=== PATIENT | female | born 1995 | race Caucasian/White ===

== ENCOUNTER 2018-04-07 13:55 | Emergency (ER) | payer BC ==
--- NOTE | 2018-04-07 14:34 | Emergency Department Record ---
History of Present Illness - General Chief Complaint: Seizures Stated Complaint: SEIZURES Time Seen by Provider: 04/07/18 14:09 Source: Patient Mode of Arrival: Ambulatory Limitations: No limitations - History of Present Illness Initial Comments: The patient is here due to having multiple seizures last evening. She has a hx of Partial Seizure disorder and believes she had 6-7 last night. During one episode she did possibly have a small amount of incontinence but did not bite her tongue or injure herself. The patient does have seizures weekly and she just moved back her to [place] from [place] and does not have a Neurologist yet. Presently she does have a very mild TOURE which is typical for her after her seizures. The patient does not drive due to the seizure hx. MD Complaint: Possible seizure Onset/Timin -: Days(s) Description of Episode: Bladder incontinence Witnessed: Yes - by bystander Trauma: No Seizure History: Known seizure disorder Place: Home Associated Symptoms: Other Treatment Prior to Arrival Comment:: Oxcarbazepine - Related Data Home Medications Medication Instructions Recorded Confirmed Last Taken Oxcarbazepine [Trileptal] 150 mg PO BID 04/07/18 04/07/18 04/07/18 Allergies Allergy/AdvReac Type Severity Reaction Status Date / Time No Known Drug Allergies Allergy Verified 04/07/18 14:13 Travel Screening - Travel/Exposure Within Last 30 Days Have you traveled within the last 30 days?: Yes Location Detail:: [place] - Travel/Exposure Within Last Year Have you traveled outside the [place] in the last year?: No - Additonal Travel Details Have you been exposed to anyone with a communicable illness?: No - Travel Symptoms Symptom Screening: Headache Review of Systems Constitutional: Denies: Chills, Fever Eyes: Denies: Eye discharge ENT: Denies: Congestion Respiratory: Denies: Cough, Dyspnea Cardiovascular: Denies: Chest pain Endocrine: Denies: Fatigue Gastrointestinal: Denies: Abdominal pain Genitourinary: Denies: Dysuria Musculoskeletal: Denies: Arthralgia Neurological: Denies: Abnormal gait Past Medical History - SOCIAL HISTORY Smoking Status: Never smoker Alcohol Use: Rare Drug Use: Heavy Drug Use Detail:: Marijuana - RESPIRATORY Hx Respiratory Disorders: Yes Hx Asthma: Yes - CARDIOVASCULAR Hx Cardio Disorders: No - NEURO Hx Neuro Disorders: Yes Hx Seizures: Yes - GI Hx GI Disorders: No Hx Ulcer: Yes - Hx Genitourinary Disorders: No - ENDOCRINE Hx Diabetes: No Hx Thyroid Disease: No - MUSCULOSKELETAL Hx Fibromyalgia: Yes - PSYCH Hx Psych Problems: No Comment:: Not - HEMATOLOGY/ONCOLOGY Hx Hematology/Oncology Disorders: No Family Medical History Any Significant Family History?: No Hx Diabetes: Grandparents Physical Exam - General General Appearance: Alert, Oriented x3, Cooperative, No acute distress (The patient appears very comfortable, smiling as I walk in the room presently texting on her phone.) - Head Head exam: Atraumatic, Normocephalic, Normal inspection - Eye Eye exam: Normal appearance, PERRL, EOMI. negative: Nystagmus - ENT Mouth exam: Tongue normal Throat exam: Normal inspection. negative: Tonsillar erythema, Tonsillar exudate - Neck Neck exam: Normal inspection, Full ROM. negative: Lymphadenopathy, Meningismus , Tenderness - Respiratory Respiratory exam: Normal lung sounds bilaterally. negative: Respiratory distress - Cardiovascular Cardiovascular Exam: Regular rate, Normal rhythm, Normal heart sounds - GI/Abdominal GI/Abdominal exam: Soft, Normal bowel sounds. negative: Tenderness - Extremities Extremities exam: Normal inspection, Full ROM, Normal capillary refill. negative: Tenderness - Neurological Neurological exam: Alert, Normal gait, Oriented X3. negative: Abnormal gait, Altered, Motor sensory deficit - Psychiatric Psychiatric exam: negative: Anxious Course Vital Signs 04/07/18 14:02 Temperature 98.8 F Pulse Rate 90 Respiratory 18 Rate Blood Pressure 139/78 Pulse Ox 98 - Reevaluation(s) Reevaluation #1: The patient is doing very well at this time. She is resting comfortably and ambulating normally. I did discuss the normal lab tests with her and the need for F/U with a family doctor for recheck and to possibly be referred to a Neurologist. 04/07/18 14:59 Medical Decision Making - Lab Data Result diagrams: 04/07/18 14:27 04/07/18 14:27 Disposition Disposition: Discharge Clinical Impression: Petit mal epilepsy Qualifiers: Intractability: not intractable Status epilepticus: without status epilepticus Qualified Code(s): G40.A09 - Absence epileptic syndrome, not intractable, without status epilepticus Disposition: Home, Self-Care Condition: (2) Stable Instructions: Recurrent Seizures in Adults (ED) Additional Instructions: Please continue your regular medicine and use Tylenol or Motrin if needed for pain. Please see a family doctor for recheck and please be referred to a Neurologist. Return to the ER for any worsening symptoms. Forms: Patient Portal Access Time of Disposition: 14:59 Quality - Quality Measures Quality Measures: N/A - Blood Pressure Screening View Details: Yes Does Patient Have Any of the Following: No Blood Pressure Classification: Pre-Hypertensive BP Reading Systolic Measurement: 139 Diastolic Measurement: 78 Screening for High Blood Pressure: < Pre-Hypertensive BP, F/U Documented > [ [id number]] Pre-Hypertensive Follow-up Interventions: Referral to alternative/primary care provider.
[2018-04-07 14:38] LABS: HEMATOCRIT 38.6 % (35.0-47.0); HEMOGLOBIN 12.6 gm/dl (11.6-16.0); MEAN CELL VOLUME 92.6 fl (81-97); MEAN CORPUSCULAR HEMOGLOBIN 30.2 pg (27-33); MEAN CORPUSCULAR HGB CONC 32.6 g/dl (32-36); MEAN PLATELET VOLUME 10.8 fl (7.4-10.4); PLATELET COUNT 228 K/uL (130-400); RED BLOOD COUNT 4.17 M/uL (3.80-5.40); RED CELL DISTRIBUTION WIDTH 14.6 % (11.5-14.5); WHITE BLOOD COUNT W/O DIFF 6.3 K/uL (4.2-12.2)
[2018-04-07 14:39] LABS: URINE APPEARANCE CLEAR; URINE BILIRUBIN NEGATIVE (NEGATIVE); URINE BLOOD NEGATIVE (NEGATIVE); URINE COLOR YELLOW; URINE GLUCOSE (UA) NEGATIVE (NEGATIVE); URINE KETONE NEGATIVE (NEGATIVE); URINE LEUKOCYTE ESTERASE NEGATIVE (NEGATIVE); URINE NITRITE NEGATIVE (NEGATIVE); URINE PROTEIN NEGATIVE (NEGATIVE); URINE UROBILINOGEN 0.2 E.U./dL (0.20 - 1.00)
[2018-04-07 14:41] LABS: HCG,QUALITATIVE URINE NEGATIVE (NEGATIVE)
[2018-04-07 14:42] LABS: AMPHETAMINE SCREEN URINE NOT DETECTED; BARBITURATE SCREEN URINE NOT DETECTED; BENZODIAZEPINE SCREEN URINE NOT DETECTED; COCAINE SCREEN URINE NOT DETECTED; METHADONE SCREEN URINE NOT DETECTED; METHAMPHETAMINE SCREEN NOT DETECTED; OPIATE SCREEN URINE NOT DETECTED; OXYCODONE SCREEN URINE NOT DETECTED; PHENCYCLIDINE SCREEN URINE NOT DETECTED; PROPOXYPHENE SCREEN URINE NOT DETECTED; THC SCREEN URINE DETECTED; TRICYCLIC ANTIDEPRESSANT SCRN NOT DETECTED
[2018-04-07 14:45] LABS: BLOOD UREA NITROGEN 9 mg/dL (6-20); CREATININE 0.6 mg/dL (0.5-0.9); EST GLOMERULAR FILTRATION RATE > 60 mL/min
[2018-04-07 14:46] LABS: PLATELET ESTIMATE NORMAL (NORMAL); TOTAL PROTEIN 6.7 g/dL (6.6-8.7)
[2018-04-07 14:48] LABS: GLUCOSE,RANDOM 105 mg/dL (74-109)
[2018-04-07 14:50] LABS: ALB/GLOB RATIO 1.8 (1.1-1.8); ALBUMIN 4.3 g/dL (4.0-5.0); ALT/SGPT 12 U/L (<33); AST/SGOT 14 U/L (10.0-35.0)
[2018-04-07 14:51] LABS: ALKALINE PHOSPHATASE 45 U/L (45-87)
== END 2018-04-07 15:06 | disposition home or self-care (01) ==
LOC: ER 13:55
DX: G40.A09 Absence epileptic syndrome, not intractable, without status epilepticus (principal); R51 Headache
CPT/HCPCS: 80053; 80305; 81003; 81025; 85027; 99283